=== PATIENT | female | born 2005 | race Caucasian/White ===

== ENCOUNTER 2024-05-26 21:47 | Emergency (ER) | payer SELFPAY ==
[~2024-05-26] VITALS: Ht 157.5 cm; Wt 75.0 kg
[2024-05-26 21:51] VITALS: BP 138/88; TEMP 97.7; O2SAT 100
[2024-05-26 22:26] LABS: BASO % 0.1 % (0.0-1.0); EOS % 0.4 % (0.0-3.0); HEMATOCRIT 40.8 % (36.0-47.0); HEMOGLOBIN 13.7 g/dl (12.0-15.5); LYMPH # 2.2 10^3/uL (1.5-5.0); LYMPH % 29.6 % (24.0-44.0); MEAN CORPUSCULAR HGB CONC 33.6 g/dl (32.0-36.5); MEAN CORPUSCULAR VOLUME 77.4 fl (80.0-96.0); MONO # 0.4 10^3/uL (0.0-0.8); MONO % 5.2 % (2.0-8.0); NEUTROPHILS # 4.7 10^3/uL (1.5-8.5); NEUTROPHILS % 64.6 % (36.0-66.0); PLATELET COUNT, AUTOMATED 303 10^3/uL (150-450); RED BLOOD COUNT 5.27 10^6/uL (4.00-5.40); WHITE BLOOD COUNT 7.3 10^3/uL (4.0-10.0)
[2024-05-26 22:51] LABS: LIPASE 28 U/L (12-53)
[2024-05-26 22:53] LABS: ALBUMIN 3.9 G/DL (3.2-5.2); ALKALINE PHOSPHATASE 46 U/L (35-104); ALT/SGPT 28 U/L (7.0-40); AST/SGOT 20 U/L (<34); BILIRUBIN,DIRECT 0.2 MG/DL (<0.4); BILIRUBIN,TOTAL 0.5 MG/DL (0.3-1.2); BLOOD UREA NITROGEN 10 MG/DL (9-23); CALCIUM LEVEL 8.9 MG/DL (8.5-10.1); CARBON DIOXIDE LEVEL 21 MMOL/L (20-31); CHLORIDE LEVEL 106 MMOL/L (98-107); CREATININE FOR GFR 0.75 MG/DL (0.55-1.30); GLUCOSE, FASTING 93 MG/DL (60-100); POTASSIUM SERUM 3.8 MMOL/L (3.5-5.1); SODIUM LEVEL 139 MMOL/L (136-145)
[2024-05-26 23:26] LABS: HCG, SERUM QUALITATIVE POSITIVE (NEGATIVE)
[2024-05-27 02:29] LABS: HCG, SERUM QUANTITATIVE 38188.8 MIU/ML (<4.2)
== END 2024-05-27 02:25 | disposition left against medical advice (07) ==
LOC: M ED 21:47
DX: Z53.21 Procedure and treatment not carried out due to patient leaving prior to being seen by health care provider (principal)

== ENCOUNTER 2025-03-23 12:25 | Emergency (ER) | payer OTHER, SELFPAY ==
[~2025-03-23] VITALS: Ht 157.5 cm; Wt 81.7 kg
[2025-03-23 14:55] VITALS: BP 19/75; TEMP 97.7; O2SAT 99
== END 2025-03-23 15:01 | disposition home or self-care (01) ==
LOC: M ED 12:25
DX: U07.1 COVID-19 (principal)